=== PATIENT | male | born 2000 | race Hispanic/Latino ===

== ENCOUNTER 2022-08-23 00:59 | Observation (INO) | payer SELFPAY ==
[2022-08-23] MEDS ORDERED: KETOROLAC 30 MG/ML INJ ONE (01:27)
[2022-08-23] MEDS ORDERED: NA CHLORIDE 0.9% 1,000 ML ONE ×2 (01:27→08:12)
[2022-08-23] MEDS ORDERED: ONDANSETRON 4 MG/2 ML VIAL ONE (01:27)
[2022-08-23 01:35] LABS: Hematocrit 41.3 % (39.6-49.0); Lymphocytes % 19.5 % (15.3-44.8); MCV 92.6 fL (80-100); MPV 8.9 fL (7.6-11.3); RBC Red Blood Cell Count 4.46 M/uL (4.33-5.43)
[2022-08-23 01:48] LABS: ALT/SGPT 39 U/L (16-61); AST/SGOT 31 U/L (15-37); Albumin 3.8 g/dL (3.4-5.0); Alkaline Phosphatase 83 U/L (45-117); BUN Blood Urea Nitrogen 16 mg/dL (7-18); Bicarbonate 26 mEq/L (21-32); Bilirubin Total 0.4 mg/dL (0.2-1.0); Creatine Phosphokinase 92 U/L (39-308); Glomerular Filtration Rate 137 ml/min (=/>90); Glucose Level 127 mg/dL (74-106); Lipase 43 U/L (13-75); Potassium 3.7 mEq/L (3.5-5.1); Protein, Total 7.5 g/dL (6.4-8.2); Sodium Level 141 mEq/L (136-145)
[2022-08-23 01:50] LABS: C-Reactive Protein < 2.90 mg/L (<3.00)
[2022-08-23 01:52] LABS: SARS-CoV-2 Antigen Rapid Res Negative (Negative)
[2022-08-23 04:05] LABS: Specific Gravity 1.015 (1.005-1.030); Urine Bilirubin NEGATIVE (Negative); Urine Blood Negative (Negative); Urine Clarity Clear (Clear); Urine Color Light-Yellow (Yellow); Urine Glucose NEGATIVE (Negative); Urine Protein NEGATIVE (Negative); Urine Urobilinogen Normal (Normal)
[2022-08-23] MEDS ORDERED: FLEET ENEMA ADULT PR ONE (04:13)
[2022-08-23] MEDS ORDERED: D5 0.9 NS 1,000 ML IV ONE (04:43)
--- NOTE | 2022-08-23 04:48 | EDPHYS ---
Physician Documentation [facility] Name: Ulysses Cuba Age: 22 yrs Sex: Male : 2000 Arrival Date: 08/23/2022 Time: 00:59 Bed 27 Private MD: ED Physician Armando Guajardo HPI: 08/23 01:07 This 23 yrs old Male presents to ER via Unassigned with complaints of sp4 abdominal distention . 01:58 23-year-old male with history of cerebral palsy, mental retardation, prolonged sp4 immobility, bedbound male. Presents with EMS for acute abdominal distention, constipation and nausea. Patient is eating and drinking normal at home and is being cared for at home by his family. Patient has not been to this hospital before. His family recently moved here from [place]. Patient is not on any medications at home. Patient is not allergic to any medications. Patient has history of genetic disorder, cerebral palsy, mental retardation.. Historical: - Allergies: 01:39 No Known Allergies; ha1 - Home Meds: 01:39 None [Active]; ha1 - PMHx: 01:39 genetic disorder; ha1 - Immunization history:: Adult Immunizations up to date. - Social history:: Smoking status: Patient denies any tobacco usage or history of. - Family history:: not pertinent. ROS: 01:58 Constitutional: Negative for fever, chills, and weight loss, positive for abdominal sp4 distention, constipation, nausea 01:58 Abdomen/GI: Positive for abdominal pain, nausea, constipation, abdominal distension. 01:58 Unable to obtain ROS due to Mental retardation. Exam: 01:58 Constitutional: Thin male, signs of moderate to severe cerebral palsy, signs of sp4 moderate to severe mental retardation, able to answer basic questions, moderate to severe physical debility with upper and lower extremity atrophy from immobility and contractures as well. Incontinent of bowel and bladder. Wears depends. Head/Face: Normocephalic, atraumatic. Eyes: Pupils equal round and reactive to light, extra-ocular motions intact. Lids and lashes normal. Conjunctiva and sclera are not injected. Cornea within normal limits. Periorbital areas with no swelling, redness, or edema. ENT: Nares patent. No nasal discharge, no septal abnormalities noted. Tympanic membranes are normal and external auditory canals are clear. Oropharynx with no redness, swelling, or masses, exudates, or evidence of obstruction, uvula midline. Dry mucous membranes Neck: Trachea midline, no thyromegaly or masses palpated, and no cervical lymphadenopathy. Supple, full range of motion without nuchal rigidity, or vertebral point tenderness. Chest/axilla: Normal chest wall appearance and motion. Nontender with no deformity. No lesions are appreciated. Cardiovascular: Regular rate and rhythm with a normal S1 and S2. No gallops, murmurs, or rubs. Normal PMI, no JVD. No pulse deficits. Respiratory: Lungs have equal breath sounds bilaterally, clear to auscultation and percussion. No rales, rhonchi or wheezes noted. No increased work of breathing, no retractions or nasal flaring. Abdomen/GI: Tympanitic abdomen, moderate to severe abdominal distention, negative bowel sounds, diffuse tenderness, Back: No spinal tenderness. No costovertebral tenderness. Male : Normal genitalia with no discharge or lesions. Incontinent of bowel and bladder. Skin: Warm, dry with no rashes, no lesions, and no evidence of cellulitis. Generalized pallor, poor skin turgor indicative of dehydration MS/ Extremity: Pulses equal, no cyanosis. Contractures from prolonged immobility, signs of cerebral palsy with moderate to severe physical debility, Neuro: Awake and alert, signs of profound mental retardation, moderate to severe physical debility, examination is limited, no acute neurologic deficits reported. Cranial nerves II-XII grossly intact. Multiple contractures from immobility Vital Signs: 01:04 BP 146 / 77; Pulse 86; Resp 18 S; Temp 98.8(A); Pulse Ox 96% on R/A; Weight 40.82 kg; ha1 Height 4 ft. 9 in. ; Pain 6/10; 02:00 BP 117 / 91; Pulse 75; Resp 19 S; Temp 99.1(O); Pulse Ox 99% ; ha1 03:00 BP 99 / 73; Pulse 72; Resp 19 S; Pulse Ox 98% on R/A; ha1 04:00 BP 112 / 59; Pulse 71; Resp 18 S; Pulse Ox 98% on R/A; ha1 01:04 Body Mass Index 19.48 (40.82 kg, 144.78 cm) ha1 01:04 Pain Scale: Adult ha1 Procedures: 04:09 Fecal disimpaction: digital disimpaction was performed, with a large amount of stool sp4 expressed. The patient tolerated the intervention well, A large fecal impaction was evacuated without complications.. MDM: 01:08 Patient medically screened. sp4 04:27 Differential Diagnosis altered mental status, sepsis, Obstructed bowel, sp4 gastroenteritis, fecal impaction, constipation.. Data reviewed: vital signs, nurses notes, lab test result(s), CBC, electrolytes, hepatic panel, urinalysis, radiologic studies, CT scan. Consideration of Admission/Observation Patient was admitted/placed on observation. Escalation of care including admission/observation considered. ED course: CT has revealed minimal dependent atelectasis at the lung bases, no evidence for nephrolithiasis or hydronephrosis. Distended large bowel loops throughout with a large focus on impacted fecal material within the rectal vault measuring 10.5 x 4 x 7 cm. Unopacified stomach and small bowel, distended large bowel loops with a large focus of impaction/fecal material within the rectal wall. . ED course: Fecal impaction was evacuated via fecal disimpaction. Patient began passing large volumes of gas. An enema was ordered NG tube was ordered but family requested no NG tube for now. Patient was discussed with admitting team for medical management in the hospital until abdominal distention subsides. We will keep n.p.o. for now. . 08/23 01:07 Order name: CBC with Diff; Complete Time: 01:50 sp4 08/23 01:07 Order name: CMP; Complete Time: 02:04 sp4 08/23 01:07 Order name: Lipase; Complete Time: 02:04 sp4 08/23 01:07 Order name: Urinalysis w/ reflexes; Complete Time: 04:07 sp4 08/23 01:08 Order name: SARS RAPID; Complete Time: 02:04 sp4 08/23 01:08 Order name: CRP; Complete Time: 02:04 sp4 08/23 01:08 Order name: CK; Complete Time: 02:04 sp4 08/23 01:57 Order name: CT Chest Abdomen Pelvis W/O Contrast sp4 08/23 03:33 Order name: Abdomen 1 View (KUB) XRAY sp4 08/23 12:16 Order name: RAD EDMS 08/23 01:07 Order name: IV Saline Lock; Complete Time: :34 sp4 08/23 01:07 Order name: Labs collected and sent; Complete Time: 34 sp4 Administered Medications: 01:13 Drug: NS 0.9% IV 1000 ml Route: IV; Rate: 1 bolus; Site: left jugular; ha1 01:15 Drug: Ondansetron IVP 4 mg Route: IVP; Site: left jugular; ha1 01:17 Drug: TORadol - Ketorolac IVP 15 mg Route: IVP; Site: left jugular; ha1 04:00 Drug: Fleet Enema AR 133 ml Route: AR; ha1 04:44 Drug: D5-NS IV 1000 ml Route: IV; Rate: 125 ml/hr; Site: right jugular; ha1 05:33 Not Given (Patient Refused): morphine IVP or IV 2 mg IVP once over 4 mins ha1 Disposition Summary: 08/23/22 04:48 Hospitalization Ordered Hospitalization Status: Observation sp4 Provider: Ash Briones sp4 Condition: Stable sp4 Problem: new sp4 Symptoms: have improved sp4 Bed/Room Type: Standard sp4 Location: Telemetry/MedSurg (observation)(08/23/22 12:55) [facility] Room Assignment: (08/23/22 13:13) [facility] Diagnosis - Fecal impaction sp4 - Abdominal distention, gaseous distention of large bowel, obstipation, Pa sp4 syndrome, paralytic ileus Forms: - Medication Reconciliation Form sp4 - SBAR form sp4 Signatures: Dispatcher [employer] EDKS Soham Vázquez FNP-C UTILITY MECHANIC-Cla1 Ml Jacobs, RN RN Berry Arthur RN RN [email or web address] Dina Elise, RN RN shasta1 Armando Guajardo MD MD sp4 Corrections: (The following items were deleted from the chart) 02:00 01:08 Abdomen Pelvis W Con+CT.RAD.BRZ ordered. EDKS EDKS 05:02 04:48 Telemetry/MedSurg (observation) sp4 cg 05:02 04:48 sp4 cg 05:34 03:33 NG Tube ordered. sp4 kd3 12:55 05:02 BR ER HOLD cg ja1 12:55 05:02 ERHOLD- ja1 13:13 12:55 224 ja1 ja1
--- NOTE | 2022-08-23 04:48 | ER ---
Nurse's Notes [facility] Name: Ulysses Cuba Age: 22 yrs Sex: Male : 2000 Arrival Date: 08/23/2022 Time: 00:59 Bed 27 Private MD: Diagnosis: Fecal impaction;Abdominal distention, gaseous distention of large bowel, obstipation, Pa syndrome, paralytic ileus Presentation: 08/23 01:04 Chief complaint: EMS states: 23 year old male had a bowel movement at 9:30 PM last ha1 night. right after, his stomach started to become distended. 01:04 Coronavirus screen: Vaccine status: Patient reports being unvaccinated. Ebola Screen: ha1 No symptoms or risks identified at this time. Initial Sepsis Screen: Does the patient meet any 2 criteria? No. Patient's initial sepsis screen is negative. Does the patient have a suspected source of infection? No. Patient's initial sepsis screen is negative. Risk Assessment: Do you want to hurt yourself or someone else? Patient reports no desire to harm self or others. Onset of symptoms was August 22, 2022. 01:04 Method Of Arrival: EMS: [facility] ha1 01:04 Acuity: NOLAN 3 ha1 Triage Assessment: 01:04 General: Appears uncomfortable, Behavior is calm, cooperative. Pain: Complains of pain ha1 in abdomen Pain does not radiate. Pain currently is 6 out of 10 on a pain scale. Neuro: Level of Consciousness is awake, alert, obeys commands, Oriented to person, place, time, situation. 01:04 Cardiovascular: Patient's skin is warm and dry. Respiratory: Airway is patent ha1 Respiratory effort is even, unlabored, Respiratory pattern is regular, symmetrical. GI: Abdomen is round distended, Last BM was August 22, 2022. Bowel sounds present in right upper quadrant and left upper quadrant Reports bloating, nausea. : No signs and/or symptoms were reported regarding the genitourinary system. Musculoskeletal: Circulation, motion, and sensation intact. Range of motion: limited in bilateral legs. Historical: - Allergies: 01:39 No Known Allergies; ha1 - Home Meds: 01:39 None [Active]; ha1 - PMHx: :39 genetic disorder; ha1 - Immunization history:: Adult Immunizations up to date. - Social history:: Smoking status: Patient denies any tobacco usage or history of. - Family history:: not pertinent. Screenin:04 Abuse screen: Denies threats or abuse. Denies injuries from another. Nutritional ha1 screening: No deficits noted. Tuberculosis screening: No symptoms or risk factors identified. Assessment: 01:04 Reassessment: see triage assessment. ha1 02:00 Reassessment: Patient and/or family updated on plan of care and expected duration. Pain ha1 level reassessed. Patient is alert, oriented x 3, equal unlabored respirations, skin warm/dry/pink. 03:00 Reassessment: Patient and/or family updated on plan of care and expected duration. Pain ha1 level reassessed. Patient is alert, oriented x 3, equal unlabored respirations, skin warm/dry/pink. 04:00 Reassessment: Patient and/or family updated on plan of care and expected duration. Pain ha1 level reassessed. Patient is alert, oriented x 3, equal unlabored respirations, skin warm/dry/pink. family members report not wanting to have NG tube done. Notified care provider. Care provider states " no NG tube". Vital Signs: 01:04 BP 146 / 77; Pulse 86; Resp 18 S; Temp 98.8(A); Pulse Ox 96% on R/A; Weight 40.82 kg; ha1 Height 4 ft. 9 in. ; Pain 6/10; 02:00 BP 117 / 91; Pulse 75; Resp 19 S; Temp 99.1(O); Pulse Ox 99% ; ha1 03:00 BP 99 / 73; Pulse 72; Resp 19 S; Pulse Ox 98% on R/A; ha1 04:00 BP 112 / 59; Pulse 71; Resp 18 S; Pulse Ox 98% on R/A; ha1 01:04 Body Mass Index 19.48 (40.82 kg, 144.78 cm) ha1 01:04 Pain Scale: Adult ha1 ED Course: 01:04 Patient arrived in ED. aa9 01:04 Arm band placed on right wrist. ha1 01:05 Inserted saline lock: 18 gauge in left EJ, using aseptic technique. ,using aseptic aa9 technique. by Bennett PAZ Blood collected. 01:06 Armando Guajardo MD is Attending Physician. sp4 01:32 Dina Elise, RN is Primary Nurse. ha1 01:34 CBC with Diff Sent. ha1 01:34 CMP Sent. ha1 01:34 Lipase Sent. ha1 01:34 CK Sent. ha1 01:34 CRP Sent. ha1 01:34 SARS RAPID Sent. ha1 01:39 Triage completed. ha1 02:27 CT Chest Abdomen Pelvis W/O Contrast In Process Unspecified. EDMS 04:47 Ash Briones MD is Hospitalizing Provider. sp4 Administered Medications: 01:13 Drug: NS 0.9% IV 1000 ml Route: IV; Rate: 1 bolus; Site: left jugular; ha1 01:15 Drug: Ondansetron IVP 4 mg Route: IVP; Site: left jugular; ha1 01:17 Drug: TORadol - Ketorolac IVP 15 mg Route: IVP; Site: left jugular; ha1 04:00 Drug: Fleet Enema RI 133 ml Route: RI; ha1 04:44 Drug: D5-NS IV 1000 ml Route: IV; Rate: 125 ml/hr; Site: right jugular; ha1 05:33 Not Given (Patient Refused): morphine IVP or IV 2 mg IVP once over 4 mins ha1 Outcome: 04:48 Decision to Hospitalize by Provider. sp4 10:00 Admitted to ER Hold. Please see [facility] for further documentation. iw 10:00 Condition: stable 10:00 Discharge instructions given to patient. 13:32 Patient left the ED. iw Signatures: Dispatcher [employer] EDMS Kyra Mendez RN RN iw Avalos, Aylin, RN RN aa9 Ayala, Heidy, VEL RN Armando Davis MD MD sp4 Corrections: (The following items were deleted from the chart) 01:07 01:05 Inserted saline lock: 18 gauge in left EJ, using aseptic technique. ,using kobi aseptic technique. by Pat PAZ Blood collected. kobi
[2022-08-23] MEDS ORDERED: ONDANSETRON 4 MG/2 ML VIAL IV PRN (05:06)
[2022-08-23] MEDS ORDERED: NA CHLORIDE 0.9% 1,000 ML IV SCH (05:06)
--- NOTE | 2022-08-23 05:11 | P.HP ---
Certification for Inpatient Patient admitted to: Observation With expected LOS: <2 Midnights Patient will require the following post-hospital care: None Practitioner: I am a practitioner with admitting privileges, knowledge of patient current condition, hospital course, and medical plan of care. Services: Services provided to patient in accordance with Admission requirements found in Title 42 Section 412.3 of the Code of Federal Regulations <Soham Vázquez - Last Filed: 08/23/22 05:08> Patient History Date of Service: 08/23/22 Reason for admission: Fecal impaction/abdominal distention History of Present Illness: 22-year-old male with history of cerebral palsy presents the emergency department with chief complaint of abdominal pain/distention. His family at bedside reports that they noticed yesterday evening he was beginning to have some significant abdominal distention, it was firm and he appeared to be uncomf ortable. He was brought in by EMS for evaluation. His labs were unremarkable CT of the abdomen pelvis showed distended large bowel loops throughout with a large focus of impaction/fecal matter within the rectal vault measuring 10.5 x 8.7 cm. ED physician digitally disimpacted patient. Given his significant abdominal distention, discomfort initial plan was for NG tube placement, admission to hospital for further evaluation. When I went to see the patient he did not yet have an NG tube and his symptoms had markedly improved. His abdomen is less distended at this time and soft. He has begun to have some flatus as well. Given the significant distention/CT findings ED provider wishes to admit under observation for fecal impaction/abdominal distention. - Past Medical/Surgical History -: Cerebral palsy -: None Psychosocial/ Personal History: Patient lives at home with his family who help care for him - Family History Family History: Reviewed- Non-Contributory - Social History Smoking Status: Never smoker Alcohol use: No CD- Drugs: No Place of Residence: Home <Soham Vázquez - Last Filed: 08/23/22 05:08> Date of Service: 08/23/22 <Amos Mathew - Last Filed: 08/23/22 12:38> Allergies No Known Allergies Allergy (Unverified 08/23/22 05:06) Review of Systems is unable to be obtained <Soham Vázquez - Last Filed: 06/08/23 05:08> Physical Examination - Physical Exam General: Alert, In no apparent distress, Other (Verbal, responds yes/no) HEENT: Atraumatic, PERRLA, Mucous membr. moist/pink, EOMI, Sclerae nonicteric Neck: Supple, 2+ carotid pulse no bruit, No LAD, Without JVD or thyroid abnormality Respiratory: Clear to auscultation bilaterally, Normal air movement Cardiovascular: Regular rate/rhythm, Normal S1 S2 Gastrointestinal: Normal bowel sounds, No tenderness, No rebound, No guarding, Distended Musculoskeletal: No tenderness Integumentary: No rashes Neurological: Normal tone - Studies Laboratory Data (last 24 hrs) 08/23/22 01:15: Sodium 141, Potassium 3.7, BUN 16, Creatinine 0.65 L, Glucose 127 H, Total Bilirubin 0.4, AST 31, ALT 39, Alkaline Phosphatase 83, Lipase 43 08/23/22 01:15: WBC 10.30, Hgb 13.8, Hct 41.3, Plt Count 267 <Soham Vázquez - Last Filed: 08/23/22 05:08> - Studies Laboratory Data (last 24 hrs) 08/23/22 01:15: Sodium 141, Potassium 3.7, BUN 16, Creatinine 0.65 L, Glucose 127 H, Total Bilirubin 0.4, AST 31, ALT 39, Alkaline Phosphatase 83, Lipase 43 08/23/22 01:15: WBC 10.30, Hgb 13.8, Hct 41.3, Plt Count 267 <Amos Mathew - Last Filed: 08/23/22 12:38> Assessment and Plan - Plan Assessment: Abdominal distention/abdominal tenderness with fecal impaction Cerebral palsy Plan: Abdominal distention/abdominal tenderness with fecal impaction Digital disimpaction performed in the emergency department, symptoms improving at this time abdomen still distended but improving per family, positive flatus. Hold off on NGT given improvement in symptoms, lack of vomiting. Serial abdominal exams, KUB later today. Continue IV fluids. Cerebral palsy At baseline. DVT PPX: Lovenox Code status: Full Discharge Plan: Home Plan to discharge in: 24 Hours - Advance Directives Does patient have a Living Will: No Does patient have a Durable POA for Healthcare: No - Code Status/Comfort Care Code Status Assessed: Yes (Full code) Critical Care: No Time Spent Managing Pts Care (In Minutes): 55 <Soham Vázquez - Last Filed: 08/23/22 05:08> Physician Review: Patient Assessed, Agree with Above Assessment and Plan <Amos Mathew - Last Filed: 08/23/22 12:38>
[2022-08-23 05:32] VITALS: BMI 19.7
[2022-08-23] MEDS ORDERED: POTASSIUM 25 MEQ EFFERV TAB PO ONE (07:37)
[2022-08-23] MEDS ORDERED: POTASSIUM 25 MEQ EFFERV TAB ONE (08:11)
[2022-08-23] MEDS ORDERED: ENOXAPARIN 40 MG/0.4 ML SQ ONE (08:12)
[2022-08-23] MEDS ORDERED: ENOXAPARIN 40 MG/0.4 ML SQ SCH (09:00)
[2022-08-23 11:44] VITALS: BP 90/61; TEMP 97.6
--- NOTE | 2022-08-23 12:15 | RAD REPORT ---
EXAM DESCRIPTION: RAD - Abdomen 1 View (KUB) - 08/23/2022 11:57 am CLINICAL HISTORY: Eval bowel gas TECHNIQUE: Single AP view of the abdomen. FINDINGS: Extensive gaseous distention throughout small and large bowel. Mild stool burden along the ascending colon. No air-fluid levels, free air, or pneumatosis. No suspicious calcifications. No significant bony abnormality. IMPRESSION: Extensive gaseous distention throughout small and large bowel.
--- NOTE | 2022-08-23 12:43 | P.DS ---
Admission Date: 08/23/22 Discharge Date: 08/23/22 Disposition: ROUTINE DISCHARGE Reason for Admission: Fecal impaction/abdominal distention Hospital Course: DIAGNOSES: # Chronic Constipation with Rectal Fecal Impaction # Cerebral Palsy HOSPITAL COURSE: Mr. Ulysses Cuba is a 22 year old male with a past medical history significant for cerebral palsy who was admitted to the [facility] on 08/23/2022 for abdominal pain and distension. He was admitted to the Medicine service. Upon further evaluation, his CT abdomen/pelvis revealed, "minimal dependent atelectatic changes lung bases. No evidence for nephrolithiasis and/or hydronephrosis. Distended large bowel loops throughout with the large focus of impaction/fecal matter within the rectal vault measuring 10.5 x 8.7 cm." In the Emergency Department, Dr. Guajardo performed a digital disimpaction, with immediate improvement of his symptoms. His post-disimpaction x-ray revealed, "mild stool burden along the ascending colon." He appeared to be doing very well clinically and his family agree that he is back at his baseline. His abdomen was soft and non-tender. He was advised to follow-up with Gastroenterology for further management of his chronic constipation. Of note, he had blood pressure readings in the 90s/60s. Suspect that this is chronic due to his small body habitus. His MAPs were persistently > 65 and he denies any symptoms. On 08/23/2022, he was seen on rounds and deemed medically stable for discharge. He was discharged with instructions to schedule follow-up appointments with his PCP and with Gastroenterology (Dr. Azar). He and his family members were given the opportunity to ask questions and reported no further questions. Furthermore, all questions were answered to the best of my ability. A copy of this discharge summary will be sent to the above providers to facilitate continuity of care. Today, I personally spent 25 minutes on his case, of which greater than 50% of the time was spent in patient education, counseling, and coordination of care as described above. Vital Signs/Physical Exam: Temp Pulse Resp BP Pulse Ox 97.6 F 62 16 90/61 98 08/23/22 11:43 08/23/22 11:43 08/23/22 11:43 08/23/22 11:43 08/23/22 11:43 General: Alert, In no apparent distress HEENT: Sclerae nonicteric Neck: JVD not distended Respiratory: Clear to auscultation bilaterally, Normal air movement Cardiovascular: No edema, Regular rate/rhythm, Normal S1 S2, No gallops, No rubs, No murmurs Gastrointestinal: Normal bowel sounds, Soft and benign, Non-distended, No tenderness, No rebound, No guarding Musculoskeletal: No clubbing Integumentary: No rashes Laboratory Data at Discharge: WBC 10.30 thou/uL (4.3-10.9) 08/23/22 01:15 Hgb 13.8 g/dL (13.6-17.9) 08/23/22 01:15 Hct 41.3 % (39.6-49.0) 08/23/22 01:15 Plt Count 267 thou/uL (152-406) 08/23/22 01:15 Sodium 141 mEq/L (136-145) 08/23/22 01:15 Potassium 3.7 mEq/L (3.5-5.1) 08/23/22 01:15 BUN 16 mg/dL (7-18) 08/23/22 01:15 Creatinine 0.65 mg/dL (0.70-1.30) L 08/23/22 01:15 Glucose 127 mg/dL (74-106) H 08/23/22 01:15 Total Bilirubin 0.4 mg/dL (0.2-1.0) 08/23/22 01:15 AST 31 U/L (15-37) 08/23/22 01:15 ALT 39 U/L (16-61) 08/23/22 01:15 Alkaline Phosphatase 83 U/L (45-117) 08/23/22 01:15 Lipase 43 U/L (13-75) 08/23/22 01:15 Physician Discharge Instructions: 1. Please call and schedule a follow-up appointment with your PCP in 3-5 days 2. Please call and schedule a follow-up appointment with Gastroenterology (Dr. Azar) in 5-7 days - He will assist in managing your long-term constipation Diet: Regular Activity: Fall precautions Followup: Luis Azar MD [ASSOCIATE-ACTIVE - CAN ADMIT] - Time spent managing pt's care (in minutes): 25
--- NOTE | 2022-08-23 13:50 | RAD REPORT ---
EXAM DESCRIPTION: CT - Chest Abd Pelvis Wo Con - 08/23/2022 5:09 am CLINICAL HISTORY: 23 years, Male, ABDOMINAL DISTENTION COMPARISON: None TECHNIQUE: Multiple transaxial tomograms of the chest, abdomen and pelvis were performed from the anette ng bases to the symphysis pubis utilizing 5 mm slice thicknesses 5 mm interval reconstruction, withou t administration of IV and oral contrast. Multiplanar reformats in the sagittal and coronal plane were generated and reviewed. This exam was performed according to our departmental dose-optimization protocol, which includes auto mated exposure control, adjustment of the mA and/or kV according to patient size and/or use of iterat petrona reconstruction technique. FINDINGS: The lack of IV and oral contrast limits evaluation of solid organs, subtle lesions cannot be excluded. Chest: The lungs parenchyma demonstrate slight decreased lung volume with minimal dependent atelectat ic changes lung bases. No masses and/or nodules are identified. The trachea mainstem bronchus demonstrate to be normal. There is no significant pleural and/or perica rdial effusions. The thoracic aorta demonstrate to be within normal limits. The heart is not enlarged. There are no co ronary artery calcifications. There is no significant mediastinal and/or hilar lymphadenopathy. The axillary regions demonstrate to be clear. The bone windows demonstrate no significant skeletal lesions. Abdomen and pelvis: Grossly the unopacified liver, gallbladder, pancreas, spleen and adrenal glands d emonstrate to be within normal limits, no significant focal lesions were identified. The kidneys demonstrate grossly unremarkable. There is no evidence for nephrolithiasis and/or hydro nephrosis. No focal masses were demonstrated. Grossly the unopacified stomach and small bowel demonstrate to be within normal limits. There there a re distended large bowel loops throughout with the large focus of impaction/fecal matter within the r ectal vault measuring 10.5 x 8.7 cm on axial image 103. The urinary bladder demonstrate to be within normal limits. The prostate gland demonstrate to be unre markable. The aorta demonstrate to be within normal limits. There is no retroperitoneal lymphadenop athy. There is no evidence for ascites. The rest of the soft tissue demonstrate to be grossly unrem arkable. IMPRESSION: Minimal dependent atelectatic changes lung bases. No evidence for nephrolithiasis and/or hydronephrosis. Distended large bowel loops throughout with the large focus of impaction/fecal matter within the rect al vault measuring 10.5 x 8.7 cm. Electronically signed by: Jacques James MD 08/23/2022 2:49 AM CDT Due to temporary technical issues with the PACS/Fluency reporting system, reports are being signed by the in house radiologists without review as a courtesy to insure prompt reporting. The interpreting radiologist is fully responsible for the content of the report.
[2022-08-23 14:29] VITALS: O2SAT 98
== END 2022-08-23 13:28 | disposition home or self-care (01) ==
LOC: ER 00:59 → EDBD 00:59 → ERHOLD 04:49
PROVIDERS: ADMIT Internal Medicine; ATTEND Internal Medicine
DX: K59.09 Other constipation (principal); R14.0 Abdominal distension (gaseous); G80.9 Cerebral palsy, unspecified; Z20.822 Contact with and (suspected) exposure to COVID-19
CPT/HCPCS: 36415; 71250; 74018; 74176; 80053; 81003; 82550; 83690; 85025; 86140; 87811; G0378; J1650; J2405; J7030; J7042